=== PATIENT | female | born 1970 | race Caucasian/White ===

== ENCOUNTER 2022-07-20 02:46 | Emergency (ER) | payer BC ==
[2022-07-20 03:08] VITALS: BMI 32.7
[2022-07-20 04:37] VITALS: BP 136/84; PULSE 64; RESP 15; TEMP 98.2
== END 2022-07-20 05:11 | disposition home or self-care (01) ==
LOC: JER 02:46
DX: R03.0 Elevated blood-pressure reading, without diagnosis of hypertension (principal)
CPT/HCPCS: 99281-25